=== PATIENT | female | born 1980 | race Caucasian/White ===

== ENCOUNTER 2019-03-12 12:41 | Emergency (ER) | payer MEDICAID ==
[~2019-03-12] VITALS: Ht 157.5 cm; Wt 59.0 kg
[2019-03-12] MEDS ORDERED: DIAZEPAM 2 MG TABLET PO ONE (14:30)
[2019-03-12] MEDS ORDERED: KETOROLAC 60MG/2ML VIAL IM ONE (14:30)
[2019-03-12] MEDS ORDERED: PREDNISONE 20MG TABLET PO ONE (14:30)
[2019-03-12 14:44] LABS: CLARITY URINE CLEAR (CLEAR); COLOR URINE YELLOW (YELLOW); KETONES URINE NEGATIVE (NEGATIVE); LEUKOCYTE ESTERASE URINE 1+ (NEGATIVE); NITRITE URINE NEGATIVE (NEGATIVE); OCCULT BLOOD URINE NEGATIVE (NEGATIVE); PROTEIN URINE NEGATIVE (NEGATIVE); SPECIFIC GRAVITY URINE 1.015 (1.005-1.030); UROBILINOGEN URINE 0.2 E.U./dL (0.2-1.0)
[2019-03-12 15:38] VITALS: BP 100/64
== END 2019-03-12 15:40 | disposition home or self-care (01) ==
LOC: ER 13:07
DX: N39.0 Urinary tract infection, site not specified (principal); M54.5 Low back pain; Z98.890 Other specified postprocedural states; Z88.5 Allergy status to narcotic agent; Z88.8 Allergy status to other drugs, medicaments and biological substances
CPT/HCPCS: 81003; 81025; 96372; 99283; J1885; J7512

== ENCOUNTER 2019-03-26 14:37 | Inpatient (IN) | payer BC, MEDICAID ==
[~2019-03-26] VITALS: Ht 154.9 cm; Wt 56.2 kg
[2019-03-26 16:00] LABS: BASOPHILS % 0.3 % (0.0-2.0); CHLORIDE 119 mEq/L (98-107); EOSINOPHILS % 0.9 % (0.0-5.0); HEMATOCRIT. 37.6 % (36.0-48.0); HEMOGLOBIN. 12.8 g/dL (12.0-16.0); LYMPHOCYTES % 23.1 % (20.0-50.0); MEAN CORPUSCULAR HEMOGLOBIN 29.5 pg (28.0-32.0); MEAN CORPUSCULAR VOLUME 86.6 fL (81.0-99.0); MONOCYTES % 4.7 % (2.0-8.0); PLATELET 213 x1000/uL (130-400); RED BLOOD CELL COUNT 4.34 mill/uL (4.2-5.4); RED CELL DISTRIBUTION WIDTH 14.1 % (11.6-14.6)
[2019-03-26] MEDS ORDERED: LACTATED RINGERS 1,000 ML IV STA (16:17)
[2019-03-26 16:18] LABS: HCG SCREEN NEGATIVE
[2019-03-26] MEDS ORDERED: POTASSIUM CHLORIDE 20MEQ TABLET SR PO ONE (16:30)
[2019-03-26] MEDS ORDERED: DEXT 5%/LACTATED RINGERS 1,000 ML IV ONE (17:30)
[2019-03-26] MEDS ORDERED: KETOROLAC 30MG/ML VIAL IV ONE (17:45)
[2019-03-26] MEDS ORDERED: KETOROLAC 15MG/ML VIAL IV ONE (18:30)
[2019-03-26] MEDS ORDERED: SODIUM CHLORIDE 0.9% 1000ML BAG (SEPSIS BOLUS) IV ONE (22:15)
[2019-03-27] VITALS (7 sets, daily range): BP systolic 79–111; BP diastolic 42–66
[2019-03-27] MEDS ORDERED: CYCL5TAB PO (01:42)
[2019-03-27] MEDS ORDERED: IBUP-2029 PO (01:42)
[2019-03-27] MEDS ORDERED: MORPHINE SULFATE 2 MG/ML CPJ (NOT FOR IM USE) IV PRN (02:00)
[2019-03-27] MEDS ORDERED: ONDANSETRON HCL 4MG/2ML INJ IV PRN (02:00)
[2019-03-27] MEDS: DEXT 5%/0.45% NACL KCL 20MEQ/L 1,000 ML IV SCH ×2 (02:36→15:07)
[2019-03-27 06:48] LABS: BASOPHILS % 0.3 % (0.0-2.0); EOSINOPHILS % 1.7 % (0.0-5.0); HEMATOCRIT. 31.2 % (36.0-48.0); HEMOGLOBIN. 10.6 g/dL (12.0-16.0); LYMPHOCYTES % 31.3 % (20.0-50.0); MEAN CORPUSCULAR HEMOGLOBIN 29.7 pg (28.0-32.0); MEAN CORPUSCULAR VOLUME 87.1 fL (81.0-99.0); MEAN PLATELET VOLUME 7.5 fl (7.4-10.4); MONOCYTES % 6.8 % (2.0-8.0); NEUTROPHILS % 59.9 % (40.0-76.0); PLATELET 166 x1000/uL (130-400); RED BLOOD CELL COUNT 3.58 mill/uL (4.2-5.4); RED CELL DISTRIBUTION WIDTH 14.1 % (11.6-14.6)
[2019-03-27 06:59] LABS: CHLORIDE 116 mEq/L (98-107)
[2019-03-27] MEDS: FAMOTIDINE 20MG TABLET PO SCH ×2 (09:55→21:37)
[2019-03-27] MEDS ORDERED: ACETAMINOPHEN 325MG TABLET PO PRN (11:30)
[2019-03-27] MEDS: CELECOXIB 100MG CAPSULE PO SCH (12:30)
[2019-03-27] MEDS ORDERED: KETOROLAC 15MG/ML VIAL IV PRN (13:15)
[2019-03-27] MEDS ORDERED: HYDROCODONE/ACETAMINOPHEN 5/325MG TABLET PO PRN (13:15)
[2019-03-27 14:24] LABS: CLARITY URINE CLEAR (CLEAR); COLOR URINE YELLOW (YELLOW); KETONES URINE NEGATIVE (NEGATIVE); LEUKOCYTE ESTERASE URINE NEGATIVE (NEGATIVE); NITRITE URINE NEGATIVE (NEGATIVE); OCCULT BLOOD URINE NEGATIVE (NEGATIVE); PH URINE 7.5 (4.5-8.0); PROTEIN URINE NEGATIVE (NEGATIVE); SPECIFIC GRAVITY URINE 1.004 (1.005-1.030); UROBILINOGEN URINE 0.2 E.U./dL (0.2-1.0)
[2019-03-27 14:55] LABS: *AMPHETAMINES SCREEN URINE NEGATIVE (NEGATIVE); *BARBITURATES SCREEN URINE NEGATIVE (NEGATIVE); *BENZODIAZEPINES SCREEN URINE NEGATIVE (NEGATIVE); *COCAINE SCREEN URINE NEGATIVE (NEGATIVE); METHADONE URINE SCREEN NEGATIVE (NEGATIVE); OPIATES URINE SCREEN NEGATIVE (NEGATIVE)
[2019-03-27 14:56] LABS: CANNABINOID URINE SCREEN NEGATIVE (NEGATIVE); PHENCYCLIDINE URINE SCREEN NEGATIVE (NEGATIVE)
[2019-03-27] MEDS: SODIUM CHLORIDE 0.9% 1,000 ML IV SCH (18:08)
[2019-03-27] MEDS ORDERED: SUMATRIPTAN SUCCINATE 25MG TABLET PO SCH (20:15)
[2019-03-27] MEDS ORDERED: SUMATRIPTAN SUCCINATE 25MG TABLET PO PRN ×2 (20:30→20:45)
[2019-03-28] VITALS: BP 91/56
[2019-03-28] MEDS ORDERED: OXYB5TAB PO (01:29)
[2019-03-28 04:00] VITALS: BP 96/58
[2019-03-28] MEDS: SODIUM CHLORIDE 0.9% 1,000 ML IV SCH ×2 (05:42→14:00)
[2019-03-28 06:09] LABS: BASOPHILS % 0.4 % (0.0-2.0); HEMATOCRIT. 31.9 % (36.0-48.0); HEMOGLOBIN. 10.9 g/dL (12.0-16.0); LYMPHOCYTES % 37.8 % (20.0-50.0); MEAN CORPUSCULAR VOLUME 87.5 fL (81.0-99.0); MEAN PLATELET VOLUME 7.2 fl (7.4-10.4); MONOCYTES % 5.9 % (2.0-8.0); NEUTROPHILS % 53.9 % (40.0-76.0); PLATELET 170 x1000/uL (130-400); RED BLOOD CELL COUNT 3.65 mill/uL (4.2-5.4)
[2019-03-28 06:10] LABS: CHLORIDE 112 mEq/L (98-107)
[2019-03-28 08:00] VITALS: BP 96/55
[2019-03-28] MEDS: FAMOTIDINE 20MG TABLET PO SCH (08:54)
[2019-03-28] MEDS: CELECOXIB 100MG CAPSULE PO SCH (08:54)
[2019-03-28] MEDS ORDERED: POTASSIUM CHLORIDE 20MEQ TABLET SR PO NR (11:30)
[2019-03-28 11:48] VITALS: BP 92/55
[2019-03-28 13:27] VITALS: BP 92/55
[2019-03-28] MEDS ORDERED: POTASSIUM CHLORIDE 20MEQ TABLET SR PO SCH (14:00)
== END 2019-03-28 14:47 | disposition home or self-care (01) | DRG 48 ==
LOC: ER 14:49 → 8WST 18:18 → EDBEDREQ 23:33 → ENRESERV 03-27 00:07
PROVIDERS: ADMIT Internal Medicine; ATTEND Internal Medicine
DX: G90.8 Other disorders of autonomic nervous system (principal); E87.0 Hyperosmolality and hypernatremia; E44.0 Moderate protein-calorie malnutrition; I95.9 Hypotension, unspecified; E87.8 Other disorders of electrolyte and fluid balance, not elsewhere classified; E16.2 Hypoglycemia, unspecified; E87.6 Hypokalemia; Z85.41 Personal history of malignant neoplasm of cervix uteri; Z98.891 History of uterine scar from previous surgery; Z88.5 Allergy status to narcotic agent; Z88.1 Allergy status to other antibiotic agents; Z68.23 Body mass index [BMI] 23.0-23.9, adult; G89.29 Other chronic pain; M54.5 Low back pain
CPT/HCPCS: 36415; 71045; 72131; 80048; 80305; 82962; 83605; 83880; 84484; 84703; 93005; 93306; 93970; 96361; 96374; 97162; 99285; J1885; J7030; J7120; J7121